=== PATIENT | male | born 1990 | race Caucasian/White ===

== ENCOUNTER 2020-07-14 18:30 | Outpatient (REF) | payer BC, SELFPAY ==
[2020-07-14 22:18] LABS: Abs Immature Grans 0.02 10^3/uL (0.0-0.06); Absolute Basophil Count 0.06 10^3/uL (0.0-0.2); Absolute Lymphocyte Count 1.84 10^3/uL (1.2-3.4); Absolute Monocyte Count 0.62 10^3/uL (0.1-0.8); Absolute Neutrophil Count 4.59 10^3/uL (1.2-6.7); Basophils % 0.8; Eosinophils % 1.4; HCT 46.6 % (40.0-50.0); HGB 15.6 g/dL (13.5-17.5); Immature Grans % 0.3; Lymphocytes % 25.4; MCH 28.6 pg (27.0-33.0); MCHC 33.5 % (32.0-36.0); MCV 85.5 fL (80-95); Monocytes % 8.6; Neutrophils % 63.5; Nucleated RBC 0 %; Platelet Count 242 10^3/uL (130-400); RBC 5.45 10^6/uL (4.36-5.78); RDW 13.2 % (11.8-14.1); RDW-SD 41.1 fL; WBC 7.23 10^3/uL (4.4-10.8)
[2020-07-14 22:32] LABS: ALT 88 U/L (16-63); AST 29 U/L (15-37); Albumin 4.2 g/dL (3.4-5.0); Alkaline Phosphatase 62 U/L (46-116); Anion Gap 10.3 mmol/L (3-11); BUN 12 mg/dL (7-18); Bilirubin, Total 0.4 mg/dL (0.2-1.0); CO2 27.7 mmol/L (21.0-32.0); Calcium 8.5 mg/dL (8.5-10.1); Chloride 105 mmol/L (98-107); Glucose 112 mg/dL (74-106); Lipase 91 U/L (73-393); Potassium 4.1 mmol/L (3.5-5.1); Sodium 143 mmol/L (136-145); Total Protein 7.3 g/dL (6.4-8.2)
== END 2020-07-14 18:31 | disposition home or self-care (01) ==
LOC: NCHCN 18:30
PROVIDERS: PCP Nurse Practitioner Family; Visit Provider Nurse Practitioner Family
DX: R10.9 Unspecified abdominal pain (principal)
CPT/HCPCS: 80053; 83690; 85025

== ENCOUNTER 2021-01-13 20:30 | Outpatient (REF) | payer BC, SELFPAY ==
[2021-01-15 15:09] LABS: COVID-19 RT-PCR UVMMC Result Negative (Negative)
== END 2021-01-13 20:31 | disposition home or self-care (01) ==
LOC: NCHCN 20:30
PROVIDERS: PCP Nurse Practitioner Family; Referring Provider Internal Medicine; Visit Provider Internal Medicine
DX: Z20.822 Contact with and (suspected) exposure to COVID-19 (principal)
CPT/HCPCS: U0003

== ENCOUNTER 2024-12-03 21:08 | Outpatient (REF) | payer BC, SELFPAY ==
[2024-12-03 21:10] LABS: HCT 45.8 % (40.0-50.0); HGB 15.3 g/dL (13.5-17.5); MCH 28.1 pg (27.0-33.0); MCHC 33.4 % (32.0-36.0); MCV 84 fL (80-95); MPV 10.8 fL (8.0-11.0); Platelet Count 255 10^3/uL (130-400); RBC 5.44 10^6/uL (4.36-5.78); RDW 13.4 % (11.8-14.1); RDW-SD 41.5 fL; WBC 6.37 10^3/uL (4.4-10.8)
[2024-12-03 21:30] LABS: ALT 70 U/L (16-63); AST 34 U/L (15-37); Albumin 4.1 g/dL (3.4-5.0); Alkaline Phosphatase 70 U/L (46-116); Anion Gap 9.4 mmol/L (3-11); BUN 13 mg/dL (7-18); Bilirubin, Total 0.3 mg/dL (0.2-1.0); CO2 28.6 mmol/L (21.0-32.0); Calcium 9.1 mg/dL (8.5-10.1); Chloride 104 mmol/L (98-107); Estimated GFR 66.80 (mL/min/1.73m2); Glucose 111 mg/dL (74-106); Potassium 4.3 mmol/L (3.5-5.1); Sodium 142 mmol/L (136-145); TSH (W/Ref FT4) 1.79 uIU/mL (0.36-3.74); Total Protein 7.4 g/dL (6.4-8.2)
[2024-12-03 21:56] LABS: Calculated LDL 135 mg/dL (<100); Cholesterol 215 mg/dL (<200); HDL Cholesterol 39 mg/dL (>or=40); Triglyceride 208 mg/dL (<150)
[2024-12-03 22:10] LABS: Hemoglobin A1C 6.0 % (<5.7)
== END 2024-12-03 21:09 | disposition home or self-care (01) ==
LOC: NCHCN 21:08
PROVIDERS: PCP Nurse Practitioner Family; Visit Provider Family Medicine
DX: E66.9 Obesity, unspecified (principal)
CPT/HCPCS: 80053; 80061; 85027; 83036; 84443